=== PATIENT | female | born 1985 | race Asian ===

== ENCOUNTER 2022-05-16 10:30 | Inpatient (IN) ==
[2022-05-16] MEDS ORDERED: OXYTOCIN 30 UNITS/500 ML BAG IV PRN ×3 (11:13→22:47)
[2022-05-16] MEDS ORDERED: LIDOCAINE 1% LOCAL 20 ML VIAL INFIL PRN (11:13)
--- NOTE | 2022-05-16 11:18 | History & Physical Report ---
Date of Service May 16, 2022 Assessment & Plan (1) Supervision of normal first : Plan: Admit to L&D. Suspect early labor. Labs, EFM/toco. Had COVID+ within past 90d. Asymptomatic at this time. Will add CMP to labs d/t elevated BPs. History of Present Illness Chief Complaint: contractions Primary Care Provider: NO PCP 36yo @ 40 5/7, presents to L&D with contractions. Some brownish spotting. No leaking fluid. + movement. and Delivery Plans Covid + 02/21/22, sx's began same day s/p covid vaccine IUGR - EFW 21% at [facility] 03/02 Does not want to follow IUGR protocol at this time and will decide after growth US in 2wks *Twice weekly NST/DVP@Dx *Weeklyl doppler@Dx *Growth US Q4wk @Dx *Deliver @39wks (unless abnml flow) * [place] [facility] [place] 22[place] [facility] [place]ergies Allergy/AdvReac Type Severity Reaction Status Date / Time No Known Allergies Allergy Verified 05/13/22 15:09 Home Medications Medication Instructions Recorded Confirmed Type prenat.vits,jax,qde-xiuf-cbfag 1 tab PO DAILY 10/20/21 05/16/22 History Patient History Medical History (Updated 05/16/22 @ 10:51 by Erica Wright RN) Anxiety and depression No medications. Varicella vaccination Surgical History No history of previous surgery S/P wisdom tooth extraction Family History Mother Hypertension Father Hypertension Other Breast cancer Colorectal cancer Denies family history of Ovarian cancer Social History Smoking Status: Never smoker marital status: marital status details: Santhosh Jesus (34) [phone] Current Living Situation: Spouse and Other Current Living Situation Comment: lives with spouse, niece, dogs current occupational status: unemployed Review of Systems All systems reviewed & are unremarkable except as noted in HPI & below Physical Exam 2 Physical Exam: FHT Cat 1 [place] Q 2 SVE 1/80/-2. soft/mid. EFW 7-8. Constitutional: WD/WN, vitals as above Respiratory: normal respiratory effort, lungs clear to auscultation no respiratory distress Cardiovascular: Rate/Rhythm: regular rate and regular rhythm Gastrointestinal (Abdomen): Inspection/Auscultation: abdomen normal to inspection Percussion/Palpation: abdomen soft; abdomen nontender Gravid. No s/s chorio or abruption. Skin: no rashes, warm and dry Psychiatric: A+Ox3, euthymic affect Results & Data ([facility]) Vital Signs (Past 12 Hours) Vital Signs Pulse BP 05/16/22 11:01 104 H 122/90 05/16/22 10:52 120 H 128/97 05/16/22 10:44 123 H 150/94 H Coding Level of Care Code None Diagnoses Supervision of normal first Z34.00
[2022-05-16 11:41] LABS: Hematocrit (blood only) 36.5 % (34.1-44.9); Hemoglobin 12.5 g/dl (12.0-16.0); Mean Corpuscular Hemoglobin 33.6 pg (25.0-34.0); Mean Corpuscular Hgb Conc 34.2 g/dL (32.0-36.0); Mean Corpuscular Volume 98.1 fL (80.0-100.0); Mean Platelet Volume 11.1 fL (9.4-12.3); Platelet Count 268 K/uL (130-400); RDW Coefficient of Variation 13.1 % (11.5-14.5); RDW Standard Deviation 46.5 fL (36.4-46.3); Red Blood Count 3.72 M/uL (3.93-5.22); White Blood Count 12.58 K/ul (4.8-10.8)
[2022-05-16 12:01] LABS: Alanine Aminotransferase 8 U/L (7-52); Albumin Globulin Ratio 1.1 (0.9-2); Albumin Level 3.4 gm/dl (3.4-5.0); Alkaline Phosphatase 135 U/L (34-104); Anion Gap 9 (3-11); Aspartate Aminotransferase 12 U/L (13-39); Bilirubin,Total 0.6 mg/dl (0.2-1.0); Blood Urea Nitrogen 12 mg/dl (6-23); Carbon Dioxide 18 mmol/L (21-32); Chloride 106 mmol/L (98-107); Est GFR (African American) 102.2 ml/min; Est GFR (Non-African American) 88.1 ml/min; Glucose 87 mg/dl (70-99(Fasting)); Potassium 4.2 mmol/L (3.5-5.1); Sodium 133 mmol/L (136-145); Total Protein 6.4 gm/dl (6.0-8.3)
[2022-05-16] MEDS: LACTATED RINGER'S 1,000 ML IV PRN ×3 (12:15→19:43)
--- NOTE | 2022-05-16 14:18 | Labor Progress Brief Note ---
Date of Service May 16, 2022 Subjective Uncomfortable with ctx. FHT Cat 1 [place] Q 3 No cervix change on exam. Discussed continued ambulation, DC home to wait for increase in ctx, or stay for augmentation of labor. She would not like to go home - as that would involve removal of IV and re-insertion upon readmission. Reviewed pros/cons of pitocin, she is agreeable to augmentation. Assessment & Plan Admission and Anticipated Discharge Date Admission Date: May 16, 2022 Results & Data ([facility]) Vital Signs (Past 12 Hours) Vital Signs Pulse Resp BP 05/16/22 12:30 18 05/16/22 12:30 18 05/16/22 12:43 93 H 05/16/22 12:43 129/79 05/16/22 11:48 96 H 05/16/22 11:48 129/94 05/16/22 11:01 104 H 122/90 05/16/22 10:52 120 H 128/97 05/16/22 10:44 123 H 150/94 H Coding Level of Care Code None
[2022-05-16] MEDS ORDERED: fentaNYL citrate 100 MCG/2 ML VIAL ONE (15:18)
[2022-05-16] MEDS ORDERED: BUPIVACAINE 0.25% 30 ML VIAL ONE (15:18)
[2022-05-16] MEDS ORDERED: LIDOCAINE 2%/EPINEPHRINE 1:200,000 20 ML SDV ONE (15:18)
[2022-05-16] MEDS ORDERED: ePHEDrine sulfate 50 MG/ML AMP ONE (15:18)
[2022-05-16] MEDS ORDERED: SODIUM CHLORIDE 0.9% INJ 10 ML VIAL ONE (15:18)
[2022-05-16] MEDS ORDERED: fentaNYL 2MCG/ML ROPIVACAINE 1.25MG/ML 100 ML BAG EPI ONE (15:19)
[2022-05-16] MEDS ORDERED: ePHEDrine sulfate 50 MG/ML AMP IV PRN (15:36)
[2022-05-16] MEDS ORDERED: NALOXONE HCL 1 MG in SODIUM CHLORIDE 0.9% 1000ML 1,000 ML IV PRN (15:36)
[2022-05-16] MEDS ORDERED: ONDANSETRON INJ 2 MG/ML 2 ML VIAL IV PRN (15:36)
[2022-05-16] MEDS ORDERED: fentaNYL 2MCG/ML ROPIVACAINE 1.25MG/ML 100 ML BAG EPI PRN (15:36)
[2022-05-16] MEDS ORDERED: NALOXONE HCL 0.4 MG/1 ML VIAL/CARP IV PRN (15:36)
[2022-05-16] MEDS ORDERED: diphenhydrAMINE 50 MG/ML VIAL IV PRN (15:36)
[2022-05-16] MEDS ORDERED: NALBUPHINE HCL INJ 10 MG/ML AMP IV PRN (15:36)
--- NOTE | 2022-05-16 15:42 | Anesthesiology Consultation ---
Date of Service May 16, 2022 Assessment & Plan Chart Review Chart Review: Patient NOT seen in Pre Admission Testing and Acceptable Risk for Labor Epidural Consults Requested none ASA ASA2 Proposed Anesthesia Anesthesia Type: Labor Epidural and CSE Risk / Benefits Reviewed With: PT / POA / Parent / Guardian, Accepts Plan and Informed Consent Obtained History Height/Weight Height: 5 ft 4 in Weight: 99.79 kg Allergies Allergy/AdvReac Type Severity Reaction Status Date / Time No Known Allergies Allergy Verified 05/16/22 13:20 Medications Home Medications Medication Instructions Recorded Confirmed Last Taken prenat.vits,jax,qmx-pwvh-uogpp 1 tab PO DAILY 10/20/21 05/16/22 05/09/22 Active Medications Generic Name Dose Route Start Last Admin Trade Name Freq PRN Reason Stop Dose Admin Lactated Ringer's 1,000 mls @ 125 mls/hr 05/16/22 11:13 05/16/22 15:28 Lr IV 05/18/22 11:12 999 mls/hr .Q8H PRN Administration L&D Protocol Protocol Oxytocin 30 units in 500 mls @ 3 mls/hr 05/16/22 14:17 05/16/22 15:11 Pitocin IV 05/18/22 14:16 0.18 units/hr .Q24H PRN 3 mls/hr Labor Induction/Augmentation Titration Protocol 0.18 UNITS/HR NPO Date Last Intake of Fluids: 05/16/22 Time Last Intake of Fluids: 14:00 Date Last Intake of Solids: 05/16/22 Time Last Intake of Solids: 09:00 Past Medical History Medical History Anxiety and depression No medications. Varicella vaccination Exercise / Class Metabolic Activity II 4-5 Yardwork/Stairs/Walk up hill Past Family History Family History Mother Hypertension Father Hypertension Other Breast cancer Colorectal cancer Denies family history of Ovarian cancer Past Surgical History Surgical History No history of previous surgery S/P wisdom tooth extraction Past Anesthesia History No Hx of Anesthesia Complications and No Family Hx of Anesthesia Complications History of PONV No Hx of PONV and No Hx of Motion Sickness Social History Smoking Status: Never smoker Hx Alcohol Use: No Hx Substance Use: No Review of Systems no chest pain or sob Physical Exam Vital Signs Last Vital Signs Temp 36.8 C 05/16/22 14:36 Pulse 79 05/16/22 15:39 Resp 18 05/16/22 14:36 BP 146/80 H 05/16/22 14:36 Pulse Ox 98 05/16/22 15:39 ENMT Mouth: no TMJ abnormality Thyromental Distance: > or= 3.5 Finger Breadths Mallampati Class: II Neck normal visual inspection Respiratory normal respiratory effort Auscultation: lungs clear to auscultation bilaterally Cardiovascular Rate/Rhythm: regular rate and regular rhythm Musculoskeletal Spine: normal cervical ROM Neurologic moves all extremities Psychiatric Orientation: alert and oriented x 3 Testing Laboratory Results 05/16/22 11:32 05/16/22 11:32 Blood Type B Positive 05/16/22 11:32 Antibody Screen NEGATIVE 05/16/22 11:32
--- NOTE | 2022-05-16 17:51 | Labor Progress Brief Note ---
Date of Service May 16, 2022 Subjective SROM clear fluid. Comfortable with epidural. FHT cat 1, [place] Q 2-4 SVE 6/90/0-1 Continue labor. Assessment & Plan Admission and Anticipated Discharge Date Admission Date: May 16, 2022 Results & Data ([facility]) Vital Signs (Past 12 Hours) Vital Signs Temp Pulse Resp BP Pulse Ox 05/16/22 17:44 99 05/16/22 17:44 94 H 05/16/22 17:39 98 05/16/22 17:39 76 05/16/22 17:37 76 05/16/22 17:37 114/62 05/16/22 17:34 97 05/16/22 17:34 94 H 05/16/22 17:29 99 05/16/22 17:29 73 05/16/22 17:20 18 05/16/22 17:20 18 05/16/22 16:50 16 05/16/22 16:50 16 05/16/22 17:24 98 05/16/22 17:24 92 H 05/16/22 17:22 71 05/16/22 17:22 121/67 05/16/22 17:19 98 05/16/22 17:19 77 05/16/22 17:14 98 05/16/22 17:14 86 05/16/22 17:09 97 05/16/22 17:09 77 05/16/22 17:07 70 05/16/22 17:07 119/72 05/16/22 17:04 98 05/16/22 17:04 83 05/16/22 16:59 98 05/16/22 16:59 87 05/16/22 16:54 99 05/16/22 16:54 89 05/16/22 16:52 89 05/16/22 16:52 154/106 H 05/16/22 16:49 95 05/16/22 16:50 94 05/16/22 16:49 73 05/16/22 16:50 81 05/16/22 16:44 96 05/16/22 16:44 74 05/16/22 16:41 94 05/16/22 16:41 70 05/16/22 16:39 95 05/16/22 16:39 72 05/16/22 16:37 71 05/16/22 16:37 128/70 05/16/22 16:36 94 05/16/22 16:36 70 05/16/22 16:34 95 05/16/22 16:34 69 05/16/22 16:29 95 05/16/22 16:29 69 05/16/22 16:24 96 05/16/22 16:24 81 05/16/22 16:21 83 05/16/22 16:21 133/94 05/16/22 16:19 97 05/16/22 16:19 80 05/16/22 16:14 97 05/16/22 16:14 81 05/16/22 16:09 97 05/16/22 16:09 76 05/16/22 16:04 97 05/16/22 16:04 72 05/16/22 16:05 68 05/16/22 16:05 135/80 05/16/22 16:03 69 05/16/22 16:03 143/84 H 05/16/22 16:01 71 05/16/22 16:01 155/83 H 05/16/22 15:59 97 05/16/22 15:59 74 05/16/22 16:00 74 05/16/22 16:00 162/85 H 05/16/22 15:57 75 05/16/22 15:57 137/86 05/16/22 15:54 96 05/16/22 15:54 90 05/16/22 15:55 83 05/16/22 15:55 135/84 05/16/22 15:49 98 05/16/22 15:49 85 05/16/22 15:44 100 05/16/22 15:44 76 05/16/22 15:39 98 05/16/22 15:39 79 05/16/22 14:06 18 05/16/22 14:06 18 05/16/22 14:36 96 H 05/16/22 14:36 36.8 C 18 146/80 H 05/16/22 12:30 18 05/16/22 12:30 18 05/16/22 12:43 93 H 05/16/22 12:43 129/79 05/16/22 11:48 96 H 05/16/22 11:48 129/94 05/16/22 11:01 104 H 122/90 05/16/22 10:52 120 H 128/97 05/16/22 10:44 123 H 150/94 H Coding Level of Care Code None
--- NOTE | 2022-05-16 20:55 | Labor Progress Brief Note ---
Date of Service May 16, 2022 Subjective Feeling some pressure with ctx. FHT Cat 1 [place] Q 2 SVE 8/90/0 to +1 station during ctx. Continue labor. Assessment & Plan Admission and Anticipated Discharge Date Admission Date: May 16, 2022 Results & Data ([facility]) Vital Signs (Past 12 Hours) Vital Signs Temp Pulse Resp BP Pulse Ox 05/16/22 20:50 18 05/16/22 20:50 18 05/16/22 20:51 123 H 05/16/22 20:51 134/69 05/16/22 20:49 95 05/16/22 20:49 108 H 05/16/22 20:44 96 05/16/22 20:44 97 H 05/16/22 20:39 97 05/16/22 20:39 97 H 05/16/22 20:36 89 05/16/22 20:36 133/82 05/16/22 20:34 96 05/16/22 20:34 93 H 05/16/22 20:29 95 05/16/22 20:29 97 H 05/16/22 20:24 95 05/16/22 20:24 91 H 05/16/22 20:20 18 05/16/22 20:20 18 05/16/22 20:19 97 05/16/22 20:19 106 H 05/16/22 20:14 97 05/16/22 20:14 85 05/16/22 20:14 93 05/16/22 20:14 88 05/16/22 20:09 96 05/16/22 20:09 93 H 05/16/22 20:06 100 H 05/16/22 20:06 165/70 H 05/16/22 20:04 97 05/16/22 20:04 92 H 05/16/22 19:59 97 05/16/22 19:59 102 H 05/16/22 19:54 97 05/16/22 19:54 108 H 05/16/22 19:50 18 05/16/22 19:50 18 05/16/22 19:50 18 05/16/22 19:50 18 05/16/22 19:51 94 05/16/22 19:51 85 05/16/22 19:49 97 05/16/22 19:49 99 H 10/15/22 19:44 96 05/16/22 19:44 85 05/16/22 19:39 97 05/16/22 19:39 79 05/16/22 19:36 67 05/16/22 19:36 121/77 05/16/22 19:34 97 05/16/22 19:34 73 05/16/22 19:29 96 05/16/22 19:29 85 05/16/22 19:24 97 05/16/22 19:24 88 05/16/22 19:23 18 05/16/22 19:23 36.9 C 18 05/16/22 19:15 18 05/16/22 19:15 18 05/16/22 19:19 97 05/16/22 19:19 83 05/16/22 19:14 97 05/16/22 19:14 75 05/16/22 19:09 97 05/16/22 19:09 77 05/16/22 19:07 80 05/16/22 19:07 122/78 05/16/22 19:04 97 05/16/22 19:04 79 05/16/22 18:59 97 05/16/22 18:59 79 05/16/22 18:50 18 05/16/22 18:50 36.8 C 18 05/16/22 18:54 97 05/16/22 18:54 72 05/16/22 18:52 89 05/16/22 18:52 128/56 L 05/16/22 18:49 97 05/16/22 18:49 79 05/16/22 18:44 97 05/16/22 18:44 86 05/16/22 18:39 98 05/16/22 18:39 79 05/16/22 18:34 98 05/16/22 18:34 81 05/16/22 18:29 98 05/16/22 18:29 73 05/16/22 18:24 97 05/16/22 18:24 74 05/16/22 18:20 18 05/16/22 18:20 18 05/16/22 18:22 77 05/16/22 18:22 112/61 05/16/22 18:19 98 05/16/22 18:19 75 05/16/22 18:14 98 05/16/22 18:14 72 05/16/22 18:09 98 05/16/22 18:09 85 05/16/22 17:44 18 05/16/22 17:44 18 05/16/22 18:07 72 05/16/22 18:07 127/58 L 05/16/22 18:04 98 05/16/22 18:04 76 05/16/22 17:50 18 05/16/22 17:50 18 05/16/22 17:59 98 05/16/22 17:59 79 05/16/22 17:54 98 05/16/22 17:54 79 05/16/22 17:52 86 05/16/22 17:52 121/68 05/16/22 17:49 98 05/16/22 17:49 84 05/16/22 17:44 99 05/16/22 17:44 94 H 05/16/22 17:39 98 05/16/22 17:39 76 05/16/22 17:37 76 05/16/22 17:37 114/62 05/16/22 17:34 97 05/16/22 17:34 94 H 05/16/22 17:29 99 05/16/22 17:29 73 05/16/22 17:20 18 05/16/22 17:20 18 05/16/22 16:50 16 05/16/22 16:50 16 05/16/22 17:24 98 05/16/22 17:24 92 H 05/16/22 17:22 71 05/16/22 17:22 121/67 05/16/22 17:19 98 05/16/22 17:19 77 05/16/22 17:14 98 05/16/22 17:14 86 05/16/22 17:09 97 05/16/22 17:09 77 05/16/22 17:07 70 05/16/22 17:07 119/72 05/16/22 17:04 98 05/16/22 17:04 83 05/16/22 16:59 98 05/16/22 16:59 87 05/16/22 16:54 99 05/16/22 16:54 89 05/16/22 16:52 89 05/16/22 16:52 154/106 H 05/16/22 16:49 95 05/16/22 16:50 94 05/16/22 16:49 73 05/16/22 16:50 81 05/16/22 16:44 96 05/16/22 16:44 74 05/16/22 16:41 94 05/16/22 16:41 70 05/16/22 16:39 95 05/16/22 16:39 72 05/16/22 16:37 71 05/16/22 16:37 128/70 05/16/22 16:36 94 05/16/22 16:36 70 05/16/22 16:34 95 05/16/22 16:34 69 05/16/22 16:29 95 05/16/22 16:29 69 05/16/22 16:24 96 05/16/22 16:24 81 05/16/22 16:21 83 05/16/22 16:21 133/94 05/16/22 16:19 97 05/16/22 16:19 80 05/16/22 16:14 97 05/16/22 16:14 81 05/16/22 16:09 97 05/16/22 16:09 76 05/16/22 16:04 97 05/16/22 16:04 72 05/16/22 16:05 68 05/16/22 16:05 135/80 05/16/22 16:03 69 05/16/22 16:03 143/84 H 05/16/22 16:01 71 05/16/22 16:01 155/83 H 05/16/22 15:59 97 05/16/22 15:59 74 05/16/22 16:00 74 05/16/22 16:00 162/85 H 05/16/22 15:57 75 05/16/22 15:57 137/86 05/16/22 15:54 96 05/16/22 15:54 90 05/16/22 15:55 83 05/16/22 15:55 135/84 05/16/22 15:49 98 05/16/22 15:49 85 05/16/22 15:44 100 05/16/22 15:44 76 05/16/22 15:39 98 05/16/22 15:39 79 05/16/22 14:06 18 05/16/22 14:06 18 05/16/22 14:36 96 H 05/16/22 14:36 36.8 C 18 146/80 H 05/16/22 12:30 18 05/16/22 12:30 18 05/16/22 12:43 93 H 05/16/22 12:43 129/79 05/16/22 11:48 96 H 05/16/22 11:48 129/94 05/16/22 11:01 104 H 122/90 05/16/22 10:52 120 H 128/97 05/16/22 10:44 123 H 150/94 H Coding Level of Care Code None
--- NOTE | 2022-05-16 22:32 | Delivery Summary ---
Vaginal Delivery Summary Date of Service May 16, 2022 Vaginal Delivery Summary and 3rd Degree LAC Vaginal Delivery Summary: Pre-delivery diagnoses: 36yo @ 40 5/7, spontaneous labor Post-delivery diagnoses: same Procedure: spontaneous vaginal delivery, repair of partial 3rd degree laceration Surgeon: Enedina Granger DO Complications: none Findings: Viable female . Apgars: 9/9. Weight pending, please see nursery records. Estimated blood loss: 400ml Description of delivery: The patient progressed to complete with epidural anesthesia. She then began to push. She spontaneously vaginally delivered a viable from the cephalic presentation. The head delivered in MARVIN position. No nuchal. The anterior shoulder delivered, followed by the posterior shoulder, followed by the body. The baby was placed on mother's abdomen and a spontaneous cry was heard. Delayed cord clamping was employed, and the cord was doubly clamped and cut. Cord blood was obtained. The placenta was delivered spontaneously intact with a 3-vessel cord. The uterus and vagina were swept of clots and debris. IV pitocin was given. The uterus became firm. The cervix, vagina, and perineum were inspected and a partial 3rd degree laceration was noted. The laceration extended to the anal sphincter muscle, and the anterior portion of the muscle was beginning to separate, however the muscle was still approximately 75% intact. A teibgq-km-qyyjs stitch of 3-0 chromic was used to pull together the remaining edges of the anal sphincter muscle. The remaining laceration was reapproximated with 3-0 vicryl. 2 additional ecvbsv-ow-eehpj sutures were placed in left vaginal sulcus to obtain hemostasis; this was ultimately achieved with both the sutures and direct pressure. Excellent hemostasis was then observed. The mother and baby are recovering in stable and good condition in the room. Sponge, needle and instrument counts were correct x 2. Enedina Granger DO [facility] Vaginal Delivery Charge Vaginal Delivery Codes: 02392 global code for the antepartum, delivery, and post- Delivery Type Details: and 3rd Degree LAC
[2022-05-16] MEDS ORDERED: HYDROCORTISONE ACETATE 25 MG SUPP PR PRN (22:47)
[2022-05-16] MEDS ORDERED: ACETAMINOPHEN 325 MG TAB PO PRN (22:47)
[2022-05-16] MEDS ORDERED: BENZOCAINE 20% AER SPR 82.5 GM CAN EXT PRN (22:47)
[2022-05-16] MEDS ORDERED: DIPHTHERIA/TETANUS/PERTUSSIS 0.5 ML SYR/VIAL IM ONE (22:47)
[2022-05-17 06:30] LABS: Hematocrit (blood only) 26.4 % (34.1-44.9); Hemoglobin 9.2 g/dl (12.0-16.0); Mean Corpuscular Hemoglobin 33.5 pg (25.0-34.0); Mean Corpuscular Hgb Conc 34.8 g/dL (32.0-36.0); Mean Platelet Volume 11.2 fL (9.4-12.3); Platelet Count 194 K/uL (130-400); RDW Coefficient of Variation 12.9 % (11.5-14.5); Red Blood Count 2.75 M/uL (3.93-5.22)
[2022-05-17] MEDS: IBUPROFEN 600 MG TAB PO PRN ×3 (08:12→18:22)
[2022-05-17] MEDS: PRENATAL VITAMIN 1 TAB PO SCH (08:12)
[2022-05-17] MEDS: DOCUSATE SODIUM 100 MG CAP PO SCH ×2 (08:12→20:38)
--- NOTE | 2022-05-17 09:01 | Obstetrical Progress Note ---
Date of Service May 17, 2022 Assessment & Plan (1) Supervision of normal first : PPD#1 doing well. Small amount of bleeding from perineal laceration, pauly powder applied. Hgb appropriate drop after delivery - will recheck tomorrow also. Will keep de la paz in until lunchtime and recheck at that time. Eating/drinking well. . Subjective Ambulation: ambulating normally Voiding: no voiding problems Diet Tolerance:: regular diet Lochia:: Moderate Review of Systems All systems reviewed & are unremarkable except as noted in HPI & below Physical Exam Constitutional WD/WN, vitals as above no acute distress Respiratory normal respiratory effort Cardiovascular Rate/Rhythm: regular rate and regular rhythm Gastrointestinal (Abdomen) Inspection/Auscultation: abdomen normal to inspection; abdomen not distended Percussion/Palpation: abdomen soft Genitourinary OB Exam Abdomen: + fundal height Fundus: + firm; not tender Results & Data ([facility]) Vital Signs (Past 12 Hours) Vital Signs Temp Pulse Pulse Resp BP BP Pulse Ox 05/17/22 04:59 36.8 C 96 H 18 131/91 05/17/22 01:32 37.1 C 103 H 18 120/83 05/17/22 00:22 37.2 C 18 05/16/22 23:51 18 05/16/22 23:21 18 05/16/22 23:07 16 05/16/22 22:51 18 05/16/22 22:36 18 05/16/22 22:21 18 05/17/22 00:21 120 H 107/65 05/17/22 00:13 122 H 103/59 L 05/17/22 00:09 115 H 92/49 L 05/17/22 00:06 137 H 92/50 L 05/16/22 23:51 137 H 05/16/22 23:51 108/60 05/16/22 23:38 133 H 05/16/22 23:38 112/55 L 05/16/22 23:37 150 H 05/16/22 23:37 179/79 H 05/16/22 23:21 122 H 05/16/22 23:21 121/66 05/16/22 22:51 104 H 05/16/22 22:51 117/73 05/16/22 22:39 117 H 05/16/22 22:39 123/72 05/16/22 22:24 100 05/16/22 22:24 134 H 05/16/22 22:21 120 H 05/16/22 22:21 125/58 L 05/16/22 22:19 100 05/16/22 22:19 113 H 05/16/22 22:16 121 H 05/16/22 22:16 116/56 L 05/16/22 22:14 99 05/16/22 22:14 122 H 05/16/22 22:14 195/134 H 05/16/22 22:09 99 05/16/22 22:09 112 H 05/16/22 22:04 99 05/16/22 22:04 119 H 05/16/22 21:59 98 05/16/22 21:59 127 H 05/16/22 21:54 100 05/16/22 21:54 130 H 05/16/22 21:51 110 H 05/16/22 21:51 126/83 05/16/22 21:49 99 05/16/22 21:49 124 H 05/16/22 21:45 18 05/16/22 21:45 18 05/16/22 21:44 100 05/16/22 21:44 134 H 05/16/22 21:30 18 05/16/22 21:30 18 05/16/22 21:39 94 05/16/22 21:39 114 H 05/16/22 21:38 89 L 05/16/22 21:38 110 H 05/16/22 21:36 116 H 05/16/22 21:36 117/82 05/16/22 21:34 99 05/16/22 21:34 120 H 05/16/22 21:29 98 05/16/22 21:29 117 H 05/16/22 21:26 93 05/16/22 21:26 110 H 05/16/22 21:24 98 05/16/22 21:24 113 H 05/16/22 21:21 113 H 05/16/22 21:21 131/69 05/16/22 21:19 91 05/16/22 21:19 110 H 05/16/22 21:12 18 05/16/22 21:12 18 05/16/22 21:14 99 05/16/22 21:14 101 H 05/16/22 21:09 97 05/16/22 21:09 104 H 05/16/22 21:06 91 05/16/22 21:06 99 H 05/16/22 21:06 137/78 05/16/22 21:04 96 05/16/22 21:04 123 H 05/16/22 20:59 96 05/16/22 20:59 121 H
[2022-05-17] MEDS: oxyCODONE/ACETAMINOPHEN 5mg/325mg TAB PO PRN (10:18)
--- NOTE | 2022-05-17 18:24 | Anesthesia Procedure Note ---
Date of Service May 17, 2022 Anesthesia Post Epidural Note Vital Signs Vital Signs: Temp Pulse Resp BP Pulse Ox O2 Del Method 36.8 C 93 H 20 127/87 100 05/17/22 12:45 05/17/22 12:45 05/17/22 12:45 05/17/22 12:45 05/16/22 22:24 05/17/22 08:12 Notes Mental Status: alert / awake / arousable and participated in evaluation Nausea / Vomiting: adequately controlled Pain: adequately controlled Airway Patency, RR, SpO2: stable & adequate BP & HR: stable & adequate Hydration State: stable & adequate Neuraxial Anesthesia: was administered and sensory block is resolving Anesthetic Complications: no major complications apparent and Pt Satisfied with anesthetic care Epidural: Removed without complications and With tip intact
[2022-05-17] MEDS ORDERED: bisacodyL 5 MG TABEC PO SCH (20:00)
[2022-05-18] MEDS: IBUPROFEN 600 MG TAB PO PRN ×3 (00:08→12:58)
--- NOTE | 2022-05-18 05:50 | Obstetrical Progress Note ---
Date of Service <Ai Coker DO - Last Filed: 05/18/22 07:11> May 18, 2022 Assessment & Plan <Ai Coker - Last Filed: 05/18/22 07:11> (1) Supervision of normal first : continue OOB, ambulation, diet as tolerated. Plan for discharge today if hemoglobin is stable. <Enedina Granger, DO - Last Filed: 05/18/22 07:16> (1) Supervision of normal first : Subjective <Ai Coker DO - Last Filed: 05/18/22 07:11> Vickey is a 36 y/o female who is now PPD # 2 following spontaneous vaginal delivery at 40 5/7 weeks. Reports feeling well overall this morning. Mild abdominal cramping pain well managed on analgesics. Voiding. Tolerating meals overnight and able to ambulate some. Some persistent lochia with some improve ment this morning. Breast/Bottle feeding. Review of Systems Denies fever, chills, sweats Denies shortness of breath, difficulty breathing, chest pain, palpitations, chest pressure. Denies breast pain. Denies dysuria. Denies headache or changes in vision. Physical Exam <Ai Coker DO - Last Filed: 05/18/22 07:11> General: Alert, oriented. No acute distress. Cardiac: Regular rate and rhythm, no murmurs/rubs/gallops. Respiratory: Clear to auscultation bilaterally a/p, no wheezes/rales/rhonchi. No increased work of breathing. Symmetrical chest rise. No respiratory distress. Abdomen: Soft, nontender, nondistended. Uterus: Uterine fundus firm, palpable 2 cm below umbilicus. Lower Extremities: No lower extremity edema or swelling. No deep calf pain. Mauri's negative bilaterally. Results & Data ([facility]) <Ai Coker DO - Last Filed: 05/18/22 07:11> Vital Signs (Past 12 Hours) Vital Signs Temp Pulse Resp BP Pulse Ox O2 Del Method 05/18/22 00:03 36.9 C 97 H 16 122/84 97 Room Air 05/17/22 20:23 36.9 C 100 H 16 122/83 98 Room Air <Enedina Granger, DO - Last Filed: 05/18/22 07:16> Co-Signing Physician Notes Resident Physician Supervision Note: I was present with Dr. Coker during the history and exam. I discussed the case with the resident and agree with the findings and plan as documented in the note. Any exceptions or clarifications are listed here: PPD#2 doing well. Moderate lochia, no further bleeding. Reviewed DC instructions, followup in 6w. Documented By: Enedina Granger DO Resident Activity Tracking <Ai Coker DO - Last Filed: 05/18/22 07:11> Resident Involvement: Resident Care Provided Care Provided: OB Delivery (Post )
[2022-05-18 07:25] LABS: Hematocrit (blood only) 23.6 % (34.1-44.9)
[2022-05-18] MEDS: PRENATAL VITAMIN 1 TAB PO SCH (08:21)
[2022-05-18] MEDS: DOCUSATE SODIUM 100 MG CAP PO SCH (08:21)
[2022-05-18] MEDS: oxyCODONE/ACETAMINOPHEN 5mg/325mg TAB PO PRN (12:58)
[2022-05-18] MEDS ORDERED: bisacodyL 10 MG SUPP PR PRN (22:47)
== END 2022-05-18 15:52 | disposition home or self-care (01) | DRG 768 ==
LOC: OPB 10:30 → 4S1 10:31 → 4E2 05-17 00:35